=== PATIENT | male | born 1970 | race Two or more races ===

== ENCOUNTER 2019-05-23 11:36 | Inpatient (IN) | payer SELFPAY ==
[~2019-05-23] VITALS: Ht 172.7 cm; Wt 98.6 kg
[2019-05-23 13:52] LABS: Basophils # (auto) 0 uL; Basophils % (auto) 0.4 % (0.0-2.0); Eosinophils # (auto) 0.2 uL; Eosinophils % (auto) 2.4 % (0.0-7.0); Hematocrit 47.2 % (41.0-53.0); Hemoglobin 15.9 g/dL (13.5-17.5); Lymphocytes % (auto) 32.2 % (10.0-50.0); Mean Corpuscular Hemoglobin 31.9 pg (28.0-32.0); Mean Corpuscular Hgb Conc. 33.8 g/dL (32.0-36.0); Mean Corpuscular Volume 94.4 fL (80.0-100.0); Monocytes # (auto) 0.4 uL; Monocytes % (auto) 6.9 % (0.0-12.0); Neutrophils # (auto) 3.7 uL; Neutrophils % (auto) 58.1 % (37.0-80.0); Nucleated Red Blood Cells % 0.1 %; Platelet Count (auto) 239 10^3/uL (140-450); Red Blood Cells 4.99 10^6/uL (4.5-5.90); Red Cell Distribution Width 12.5 % (11.8-14.3); White Blood Cell 6.4 10^3/uL (4.4-10.8)
[2019-05-23 14:14] LABS: Albumin 4.2 g/dL (3.4-5.0); Calcium 8.7 mg/dL (8.5-10.1); Potassium 4.1 mmol/L (3.5-5.1)
[2019-05-23 14:24] LABS: Bilirubin, Total 0.6 mg/dL (0.2-1.0); Total Protein 8.1 g/dL (6.4-8.2)
[2019-05-23 14:46] LABS: BUN/Creatinine Ratio 13.1
[2019-05-23 15:24] LABS: Urine Bacteria NONE SEEN /hpf (None Seen); Urine Blood 1+ /uL (Negative); Urine Mucus FEW (None Seen); Urine Specific Gravity 1.028 (1.001-1.035); Urine WBC 1 /hpf (0 - 3)
[2019-05-23] MEDS ORDERED: MORPHINE SULFATE 4 MG/ML SYR/VIAL IV ONE (16:15)
[2019-05-23] MEDS ORDERED: ONDANSETRON HCL 4 MG/2 ML VIAL IV ONE (16:15)
[2019-05-23] MEDS ORDERED: SODIUM CHLORIDE 0.9% 1,000 ML IV ONE (16:15)
[2019-05-23] MEDS ORDERED: MORPHINE SULF INJ 2 MG/ML SYRINGE 1ML IV PRN (16:30)
[2019-05-23] MEDS ORDERED: NITROGLYCERIN 0.4 MG SL TAB SL PRN (16:30)
[2019-05-23] MEDS ORDERED: ONDANSETRON HCL 4 MG/2 ML VIAL IV PRN (16:30)
[2019-05-23] MEDS: LACTATED RINGER'S 1,000 ML IV SCH ×2 (17:31→18:34)
[2019-05-23] MEDS: HYDROmorphone HCL 2 MG/ML VL IV PRN ×2 (17:35→22:37)
[2019-05-23 18:46] VITALS: BP 118/66
--- NOTE | 2019-05-23 18:56 | NUR ---
PT ARRIVED TO FLOOR FROM ER AT 1824. VSS, DENIES PAIN. WILL CONTINUE TO MONITOR.
[2019-05-23] MEDS ORDERED: INFLUENZA QUAD 2019-2020 0.5ml SYRG IM ONE (20:00)
[2019-05-23 20:10] VITALS: BP 125/63
--- NOTE | 2019-05-23 20:10 | NUR ---
Opening Shift Note Assumed care of patient, awake and alert. No S/S of distress/SOB. Patient complaint of 2/10 pain in his stomach. Patient refused pain medication at this time. Instructed on POC and to call for assist PRN, will continue to monitor for changes Q1hr and PRN.
[2019-05-23 21:54] VITALS: BP 125/63
[2019-05-23] MEDS: FAMOTIDINE (10MG/ML) 2ML VL IV SCH (22:36)
[2019-05-24 05:41] VITALS: BP 115/75
[2019-05-24 05:57] LABS: Basophils # (auto) 0 uL; Basophils % (auto) 0.6 % (0.0-2.0); Eosinophils # (auto) 0.1 uL; Eosinophils % (auto) 2.8 % (0.0-7.0); Hematocrit 41.2 % (41.0-53.0); Hemoglobin 14.1 g/dL (13.5-17.5); Lymphocytes # (auto) 1.9 uL; Lymphocytes % (auto) 37.3 % (10.0-50.0); Mean Corpuscular Hemoglobin 32.5 pg (28.0-32.0); Mean Corpuscular Hgb Conc. 34.3 g/dL (32.0-36.0); Mean Corpuscular Volume 94.8 fL (80.0-100.0); Monocytes # (auto) 0.5 uL; Monocytes % (auto) 9.2 % (0.0-12.0); Neutrophils # (auto) 2.6 uL; Neutrophils % (auto) 50.1 % (37.0-80.0); Nucleated Red Blood Cells % 0.1 %; Platelet Count (auto) 192 10^3/uL (140-450); Red Blood Cells 4.35 10^6/uL (4.5-5.90); Red Cell Distribution Width 12.2 % (11.8-14.3); White Blood Cell 5.2 10^3/uL (4.4-10.8)
[2019-05-24 06:28] LABS: Albumin 3.3 g/dL (3.4-5.0); BUN/Creatinine Ratio 10.4; Bilirubin, Total 0.6 mg/dL (0.2-1.0); Total Protein 6.6 g/dL (6.4-8.2)
[2019-05-24] MEDS: LACTATED RINGER'S 1,000 ML IV SCH ×3 (08:20→23:38)
[2019-05-24 09:00] VITALS: BP 126/77
[2019-05-24] MEDS: FAMOTIDINE (10MG/ML) 2ML VL IV SCH ×2 (09:14→21:13)
[2019-05-24 13:00] VITALS: BP 119/72
--- NOTE | 2019-05-24 14:33 | NUR ---
Received consult for Social Service to determine the status of pt's insurance. This pt is currently pending [facility].
[2019-05-24 17:00] VITALS: BP 119/72
[2019-05-24] MEDS: HYDROmorphone HCL 2 MG/ML VL IV PRN (20:39)
[2019-05-24 21:29] VITALS: BP 121/81
[2019-05-25] MEDS: HYDROmorphone HCL 2 MG/ML VL IV PRN ×2 (00:28→04:45)
[2019-05-25 05:12] VITALS: BP 116/70
[2019-05-25] MEDS ORDERED: INFLUENZA QUAD 2019-2020 0.5ml SYRG IM ONE (07:15)
[2019-05-25 08:00] VITALS: BP 119/67
[2019-05-25] MEDS: FAMOTIDINE (10MG/ML) 2ML VL IV SCH (10:13)
--- NOTE | 2019-05-25 11:40 | NUR ---
Dr. Luis Enrique Elam in to see patient as hospitalist.
[2019-05-25 12:00] VITALS: BP 113/71
--- NOTE | 2019-05-25 12:55 | NUR ---
Received Social Service consult to determine pt's insurance status. The application is still pending according to [place].
[2019-05-25 13:31] VITALS: BP 119/67
--- NOTE | 2019-05-25 14:40 | NUR ---
Opening Shift Note Assumed care of patient, awake and alert. No S/S of distress/SOB or pain. Instructed on POC and to call for assist PRN, will continue to monitor for changes Q1hr and PRN.
== END 2019-05-25 14:40 | disposition home or self-care (01) | DRG 440 ==
LOC: ER 11:36 → WEST WING 11:37
PROVIDERS: ADMIT Nurse Practitioner Acute Care; ATTEND Family Medicine
DX: K85.90 Acute pancreatitis without necrosis or infection, unspecified (principal); K21.9 Gastro-esophageal reflux disease without esophagitis; Z90.49 Acquired absence of other specified parts of digestive tract
CPT/HCPCS: 36415; 74176; 80053; 80061; 81001; 83690; 85025; 96361; 96374; 96375; G0378; J2405; J3490

== ENCOUNTER 2022-05-17 21:06 | Emergency (ER) | payer MEDICAID | END 2022-05-18 00:13 | disposition left against medical advice (07) | LOC: ER 21:07 | DX: K21.9 Gastro-esophageal reflux disease without esophagitis (principal); Z53.21 Procedure and treatment not carried out due to patient leaving prior to being seen by health care provider ==

== ENCOUNTER 2022-08-11 16:32 | Emergency (ER) | payer MEDICAID ==
[~2022-08-11] VITALS: Ht 175.3 cm; Wt 104.3 kg
[2022-08-11 17:59] LABS: Basophils # (auto) 0 10 ^3/uL (0-0.2); Basophils % (auto) 0.4 % (0.0-2.0); Eosinophils # (auto) 0.1 10 ^3/uL (0-0.8); Eosinophils % (auto) 1.4 % (0.0-7.0); Hematocrit 47.7 % (41.0-53.0); Hemoglobin 16.2 g/dL (13.5-17.5); Lymphocytes # (auto) 1.8 10 ^3/uL (0.4-5.4); Mean Corpuscular Hemoglobin 31.5 pg (28.0-32.0); Mean Corpuscular Volume 92.6 fL (80.0-100.0); Monocytes # (auto) 0.4 10 ^3/uL (0-1.3); Monocytes % (auto) 5.4 % (0.0-12.0); Neutrophils # (auto) 4.3 10 ^3/uL (1.6-8.6); Neutrophils % (auto) 64.8 % (37.0-80.0); Nucleated Red Blood Cells % 0.1 %; Red Blood Cells 5.15 10^6/uL (4.5-5.90); Red Cell Distribution Width 12.9 % (11.8-14.3); White Blood Cell 6.6 10^3/uL (4.4-10.8)
[2022-08-11 18:10] LABS: Calcium 8.8 mg/dL (8.5-10.1); Potassium 4.2 mmol/L (3.5-5.1)
[2022-08-11 18:13] LABS: BUN/Creatinine Ratio 11.9
[2022-08-11 18:16] LABS: Bilirubin, Total 0.6 mg/dL (0.2-1.0); Total Protein 7.7 g/dL (6.4-8.2)
[2022-08-11 23:49] LABS: Urine Bacteria FEW /hpf (None Seen); Urine Blood Negative /uL (Negative); Urine Hyaline Cast FEW /lpf (0 - 2); Urine Specific Gravity 1.017 (1.001-1.035); Urine WBC <1 /hpf (0 - 3)
[2022-08-12] MEDS ORDERED: CIPR-173 PO (02:44)
[2022-08-12 05:22] VITALS: BP 114/76
== END 2022-08-12 05:23 | disposition home or self-care (01) ==
LOC: ER 16:32
DX: N39.0 Urinary tract infection, site not specified (principal); Z90.49 Acquired absence of other specified parts of digestive tract
CPT/HCPCS: 36415; 74176; 80053; 81001; 83690; 85025